=== PATIENT | male | born 1950 | race African-American/Black ===

== ENCOUNTER 2020-11-14 21:28 | Inpatient (IN) | payer MEDICARE, OTHER ==
[~2020-11-14] VITALS: Ht 175.3 cm; Wt 69.4 kg
[2020-11-14] MEDS ORDERED: ONDANSETRON HCL 4MG/2ML INJ IV NR (23:08)
[2020-11-14] MEDS ORDERED: SODIUM CHLORIDE 0.9% 1,000 ML IV NR (23:15)
[2020-11-14 23:41] LABS: CHLORIDE 106 mEq/L (98-107)
[2020-11-14] MEDS: MORPHINE SULFATE 4 MG/ML CPJ (NOT FOR IM USE) IV NR (23:56)
[2020-11-15] MEDS: MORPHINE SULFATE 4 MG/ML CPJ (NOT FOR IM USE) IV NR (00:42)
[2020-11-15 00:52] LABS: HEMATOCRIT. 45.4 % (42.0-52.0); MEAN CORPUSCULAR HEMOGLOBIN 29.7 pg (28.0-32.0); MEAN CORPUSCULAR VOLUME 89.7 fL (80.0-94.0); MEAN PLATELET VOLUME 7.5 fl (7.4-10.4); PLATELET 319 x1000/uL (130-400); RED BLOOD CELL COUNT 5.06 mill/uL (4.7-6.1); RED CELL DISTRIBUTION WIDTH 13.1 % (11.6-14.6)
[2020-11-15 01:43] LABS: PLATELET ESTIMATE NORMAL
[2020-11-15] MEDS ORDERED: CLON1TAB12 PO (06:02)
[2020-11-15] MEDS ORDERED: HYDR-4009 PO (06:02)
[2020-11-15] MEDS ORDERED: GABA-532 PO (06:02)
[2020-11-15 06:33] VITALS: BP 111/65
[2020-11-15 06:34] VITALS: BP 111/65
[2020-11-15 08:01] VITALS: BP 121/74
[2020-11-15] MEDS ORDERED: CLONIDINE 0.1MG TABLET PO PRN (08:30)
[2020-11-15] MEDS ORDERED: ACETAMINOPHEN 325MG TABLET PO PRN (08:30)
[2020-11-15] MEDS ORDERED: IPRATROPIUM/ALBUTEROL 0.5-3(2.5)MG/3ML NEB HHN PRN (08:30)
[2020-11-15] MEDS ORDERED: ONDANSETRON HCL 4MG/2ML INJ IV PRN (08:30)
[2020-11-15] MEDS ORDERED: DIPHENHYDRAMINE 50MG/ML VIAL IV PRN (08:30)
[2020-11-15] MEDS: MORPHINE SULFATE 2 MG/ML CPJ (NOT FOR IM USE) IV PRN ×4 (09:43→23:25)
[2020-11-15] MEDS: PIPERACILLIN/TAZOBACTAM 3.375 G in DEXTROSE 5% WATER 50 ML IV SCH ×2 (11:39→18:03)
[2020-11-15 12:13] VITALS: BP 116/72
[2020-11-15 15:43] VITALS: BP 120/65
[2020-11-15] MEDS ORDERED: CLONAZEPAM 0.5MG TABLET PO SCH (17:00)
[2020-11-15] MEDS: GABAPENTIN 300MG CAPSULE PO SCH (17:13)
[2020-11-15 20:00] VITALS: BP 122/73
[2020-11-15] MEDS: DEXAMETHASONE 4MG/ML 1ML VIAL IV SCH (23:25)
[2020-11-16] VITALS (42 sets, daily range): BP systolic 91–161; BP diastolic 43–102
[2020-11-16] MEDS: PIPERACILLIN/TAZOBACTAM 3.375 G in DEXTROSE 5% WATER 50 ML IV SCH ×2 (01:30→13:10)
[2020-11-16] MEDS: DEXAMETHASONE 4MG/ML 1ML VIAL IV SCH ×4 (06:23→23:32)
[2020-11-16] MEDS ORDERED: THROMBIN (BOVINE) 5000 UNITS/VIAL TOP ONE ×2 (07:15→07:16)
[2020-11-16] MEDS ORDERED: GENTAMICIN SULF 40MG/ML 2ML VIAL ONE (07:15)
[2020-11-16 07:42] LABS: CHLORIDE 105 mEq/L (98-107); HEMATOCRIT. 41.5 % (42.0-52.0); HEMOGLOBIN. 14.2 g/dL (14.0-18.0); MEAN CORPUSCULAR HEMOGLOBIN 30.4 pg (28.0-32.0); MEAN PLATELET VOLUME 7.4 fl (7.4-10.4); PLATELET 346 x1000/uL (130-400); RED BLOOD CELL COUNT 4.66 mill/uL (4.7-6.1); RED CELL DISTRIBUTION WIDTH 13.1 % (11.6-14.6)
[2020-11-16 07:51] LABS: LDL CHOLESTEROL 61 mg/dL (5-100)
[2020-11-16 07:53] LABS: HDL CHOLESTEROL 48 mg/dL (40-59)
[2020-11-16] MEDS: GABAPENTIN 300MG CAPSULE PO SCH ×3 (09:00→17:51)
[2020-11-16] MEDS: CLONAZEPAM 1MG TABLET PO SCH ×3 (09:00→17:51)
[2020-11-16 09:25] LABS: PLATELET ESTIMATE NORMAL
[2020-11-16] MEDS ORDERED: FENTANYL CITRATE/PF 50MCG/ML 2ML VIAL ONE ×2 (09:56→10:29)
[2020-11-16] MEDS ORDERED: ROCURONIUM BROMIDE 10MG/ML VIAL 5ML IV ONE (09:57)
[2020-11-16] MEDS ORDERED: PHENYLEPHRINE HCL 10 MG/ML 1ML (IV VIAL) IV ONE (09:57)
[2020-11-16] MEDS ORDERED: GLYCOPYRROLATE 0.2 MG/ML 2ML VIAL ONE (09:57)
[2020-11-16] MEDS ORDERED: MIDAZOLAM HCL 2 MG/2 ML VIAL ONE (09:57)
[2020-11-16] MEDS ORDERED: NEOSTIGMINE METHYLSULFATE 1MG/ML 10 ML VIAL ONE (09:57)
[2020-11-16] MEDS ORDERED: SODIUM CHLORIDE 0.9% 10ML VIAL ONE (09:57)
[2020-11-16] MEDS ORDERED: ONDANSETRON HCL 4MG/2ML INJ ONE (09:57)
[2020-11-16] MEDS ORDERED: PROPOFOL 200MG/20ML VIAL IV ONE (09:57)
[2020-11-16] MEDS ORDERED: METOCLOPRAMIDE HCL 10MG/2ML VIAL ONE (09:57)
[2020-11-16] MEDS ORDERED: CEFAZOLIN SODIUM 1000MG/VIAL ONE (09:57)
[2020-11-16] MEDS ORDERED: SUCCINYLCHOLINE CHLORIDE 200MG/10ML IV ONE (10:04)
[2020-11-16] MEDS ORDERED: LABETALOL HCL 5MG/ML VIAL 20ML IV ONE (11:44)
[2020-11-16] MEDS ORDERED: NICARDIPINE 100 MG in SODIUM CHLORIDE 0.9% 60 ML IV PRN (12:00)
[2020-11-16] MEDS: MORPHINE SULFATE 4 MG/ML CPJ (NOT FOR IM USE) IV PRN (12:12)
[2020-11-16] MEDS: DEXT 5%/LACTATED RINGERS 1,000 ML IV SCH ×2 (12:26→23:32)
[2020-11-16] MEDS ORDERED: DIPHENHYDRAMINE INJ IV PRN (12:30)
[2020-11-16] MEDS ORDERED: ONDANSETRON INJ IV PRN (12:30)
[2020-11-16] MEDS ORDERED: NALOXONE INJ IV PRN (12:30)
[2020-11-16] MEDS: HYDROMORPHONE PCA 10MG/50ML IV PRN (12:56)
[2020-11-16] MEDS ORDERED: MORPHINE SULFATE 4 MG/ML CPJ (NOT FOR IM USE) IV SCH (13:45)
[2020-11-16] MEDS ORDERED: CEFAZOLIN SODIUM 1000MG/VIAL IV SCH (14:00)
[2020-11-16] MEDS: PIPERACILLIN/TAZOBACTAM 3.375G in DEXT 5% WATER 50ML IV SCH ×2 (17:50→23:32)
[2020-11-16] MEDS: CEFAZOLIN 1000MG PREMIX 50 ML IV SCH (17:51)
[2020-11-17] VITALS (57 sets, daily range): BP systolic 93–177; BP diastolic 51–85
[2020-11-17] MEDS: CEFAZOLIN 1000MG PREMIX 50 ML IV SCH ×3 (01:02→17:58)
[2020-11-17] MEDS: DEXAMETHASONE 4MG/ML 1ML VIAL IV SCH ×4 (05:49→23:23)
[2020-11-17] MEDS: PIPERACILLIN/TAZOBACTAM 3.375G in DEXT 5% WATER 50ML IV SCH ×4 (05:49→23:23)
[2020-11-17] MEDS: DEXT 5%/LACTATED RINGERS 1,000 ML IV SCH (07:22)
[2020-11-17] MEDS: CLONAZEPAM 1MG TABLET PO SCH ×3 (08:03→18:20)
[2020-11-17] MEDS: GABAPENTIN 300MG CAPSULE PO SCH ×3 (08:03→18:21)
[2020-11-17 10:03] LABS: HEMATOCRIT. 38.5 % (42.0-52.0); HEMOGLOBIN. 13.1 g/dL (14.0-18.0); MEAN CORPUSCULAR HEMOGLOBIN 30.3 pg (28.0-32.0); MEAN CORPUSCULAR VOLUME 89.2 fL (80.0-94.0); MEAN PLATELET VOLUME 7.4 fl (7.4-10.4); PLATELET 366 x1000/uL (130-400); RED BLOOD CELL COUNT 4.32 mill/uL (4.7-6.1); RED CELL DISTRIBUTION WIDTH 12.9 % (11.6-14.6)
[2020-11-17 10:05] LABS: CHLORIDE 108 mEq/L (98-107)
[2020-11-17 11:03] LABS: PLATELET ESTIMATE NORMAL
[2020-11-18] VITALS (60 sets, daily range): BP systolic 94–186; BP diastolic 31–140
[2020-11-18] MEDS: CEFAZOLIN 1000MG PREMIX 50 ML IV SCH ×3 (01:02→17:07)
[2020-11-18] MEDS: HYDROMORPHONE PCA 10MG/50ML IV PRN (04:25)
[2020-11-18] MEDS: PIPERACILLIN/TAZOBACTAM 3.375G in DEXT 5% WATER 50ML IV SCH ×3 (05:32→17:48)
[2020-11-18] MEDS: DEXAMETHASONE 4MG/ML 1ML VIAL IV SCH ×3 (05:32→17:07)
[2020-11-18] MEDS: CLONAZEPAM 1MG TABLET PO SCH ×3 (08:04→17:07)
[2020-11-18] MEDS: GABAPENTIN 300MG CAPSULE PO SCH ×3 (08:04→17:07)
[2020-11-18] MEDS ORDERED: VANCOMYCIN 1250MG in DEXTROSE 5% WATER 250ML IV NR (22:00)
[2020-11-18] MEDS: CEFTRIAXONE 2 G in DEXTROSE 5% WATER 50 ML IV SCH (22:01)
[2020-11-19] VITALS (74 sets, daily range): BP systolic 102–160; BP diastolic 36–108
[2020-11-19] MEDS: DEXAMETHASONE 4MG/ML 1ML VIAL IV SCH ×3 (00:25→12:15)
[2020-11-19 05:46] LABS: CHLORIDE 105 mEq/L (98-107)
[2020-11-19 05:55] LABS: HEMATOCRIT. 40.4 % (42.0-52.0); HEMOGLOBIN. 13.2 g/dL (14.0-18.0); MEAN CORPUSCULAR HEMOGLOBIN 29.2 pg (28.0-32.0); MEAN CORPUSCULAR VOLUME 89.3 fL (80.0-94.0); MEAN PLATELET VOLUME 8.1 fl (7.4-10.4); PLATELET 401 x1000/uL (130-400); RED BLOOD CELL COUNT 4.52 mill/uL (4.7-6.1); RED CELL DISTRIBUTION WIDTH 13.1 % (11.6-14.6)
[2020-11-19] MEDS: CLONAZEPAM 1MG TABLET PO SCH ×3 (08:06→17:40)
[2020-11-19] MEDS: VANCOMYCIN 1 G PREMIX 200 ML IV SCH ×2 (08:06→20:44)
[2020-11-19] MEDS: GABAPENTIN 300MG CAPSULE PO SCH ×3 (08:06→17:40)
[2020-11-19 13:19] LABS: PLATELET ESTIMATE NORMAL
[2020-11-19] MEDS ORDERED: HALOPERIDOL LACTATE 5MG/ML VIAL IM PRN (20:30)
[2020-11-19] MEDS: HYDROCODONE/ACETAMINOPHEN 5/325MG TABLET PO PRN (20:58)
[2020-11-19] MEDS: CEFTRIAXONE 2 G in DEXTROSE 5% WATER 50 ML IV SCH (21:00)
[2020-11-20 04:00] VITALS: BP 146/88
[2020-11-20] MEDS: MORPHINE SULFATE 4 MG/ML CPJ (NOT FOR IM USE) IV PRN (05:55)
[2020-11-20 06:13] LABS: CHLORIDE 107 mEq/L (98-107)
[2020-11-20 06:18] LABS: HEMATOCRIT. 42.7 % (42.0-52.0); HEMOGLOBIN. 14.3 g/dL (14.0-18.0); MEAN CORPUSCULAR HEMOGLOBIN 30.3 pg (28.0-32.0); MEAN CORPUSCULAR VOLUME 90.6 fL (80.0-94.0); MEAN PLATELET VOLUME 7.4 fl (7.4-10.4); PLATELET 396 x1000/uL (130-400); RED BLOOD CELL COUNT 4.71 mill/uL (4.7-6.1); RED CELL DISTRIBUTION WIDTH 12.9 % (11.6-14.6)
[2020-11-20 08:00] VITALS: BP 123/76
[2020-11-20] MEDS: GABAPENTIN 300MG CAPSULE PO SCH ×3 (09:23→17:00)
[2020-11-20] MEDS: CLONAZEPAM 1MG TABLET PO SCH ×3 (09:23→17:00)
[2020-11-20] MEDS: VANCOMYCIN 1 G PREMIX 200 ML IV SCH (09:24)
[2020-11-20] MEDS: HYDROCODONE/ACETAMINOPHEN 5/325MG TABLET PO PRN (10:33)
[2020-11-20 12:00] VITALS: BP 143/90
[2020-11-20 19:07] LABS: PLATELET ESTIMATE NORMAL
== END 2020-11-20 18:43 | disposition left against medical advice (07) | DRG 912 ==
LOC: ER 21:28 → 6WST 11-15 01:14 → ENRESERV 11-15 03:33 → MICUNO 11-16 10:58 → 6EST 11-19 23:41
PROVIDERS: ADMIT Internal Medicine; ATTEND Internal Medicine
PROC: 0RG20J1 Fusion of 2 or more Cervical Vertebral Joints with Synthetic Substitute, Posterior Approach, Posterior Column, Open Approach (ICD-10-PCS; principal; 2020-11-16)
PROC: 00NW0ZZ Release Cervical Spinal Cord, Open Approach (ICD-10-PCS; 2020-11-16)
PROC: 4A11X4G Monitoring of Peripheral Nervous Electrical Activity, Intraoperative, External Approach (ICD-10-PCS; 2020-11-16)
PROC: 009U3ZZ Drainage of Spinal Canal, Percutaneous Approach (ICD-10-PCS; 2020-11-16)
DX: S14.103A Unspecified injury at C3 level of cervical spinal cord, initial encounter (principal); S06.4X0A Epidural hemorrhage without loss of consciousness, initial encounter; G82.50 Quadriplegia, unspecified; G93.41 Metabolic encephalopathy; G95.19 Other vascular myelopathies; R13.10 Dysphagia, unspecified; M48.02 Spinal stenosis, cervical region; R47.01 Aphasia; G95.20 Unspecified cord compression; G40.909 Epilepsy, unspecified, not intractable, without status epilepticus; E78.5 Hyperlipidemia, unspecified; M19.90 Unspecified osteoarthritis, unspecified site; R74.01 Elevation of levels of liver transaminase levels; R47.1 Dysarthria and anarthria; D64.9 Anemia, unspecified; D72.829 Elevated white blood cell count, unspecified; Z20.822 Contact with and (suspected) exposure to COVID-19; R73.9 Hyperglycemia, unspecified; Y65.8 Other specified misadventures during surgical and medical care; M47.812 Spondylosis without myelopathy or radiculopathy, cervical region; X58.XXXA Exposure to other specified factors, initial encounter; V89.2XXA Person injured in unspecified motor-vehicle accident, traffic, initial encounter; Y92.410 Unspecified street and highway as the place of occurrence of the external cause; Z88.8 Allergy status to other drugs, medicaments and biological substances; Z79.899 Other long term (current) drug therapy; Y92.89 Other specified places as the place of occurrence of the external cause; Y93.89 Activity, other specified; Y99.8 Other external cause status; Z79.2 Long term (current) use of antibiotics; R53.81 Other malaise; R26.9 Unspecified abnormalities of gait and mobility
CPT/HCPCS: 36415; 72040; 72141; 76000; 80048; 80053; 80061; 80202; 83605; 84145; 84443; 85025; 85651; 86140; 86850; 86900; 87070; 87075; 87426; 88300; 88307; 92523; 92610; 93005; 93970; 95863; 95925; 95926; 95928; 95929; 97116; 97163; 97166; 99285; C1713; J0330; J0690; J0696; J1100; J1170; J1200; J1580; J1630; J2250; J2270; J2370; J2405; J2543; J2704; J2710; J2765; J3010; J3370; J3490; J7060; J7121; C1762

== ENCOUNTER 2023-07-03 21:30 | Emergency (ER) | payer MEDICARE, OTHER ==
[~2023-07-03] VITALS: Ht 175.3 cm; Wt 73.5 kg
[~2023-07-03 21:30] MED LIST: CLON1TAB12 PO; GABA-532 PO; HYDR-4009 PO
[2023-07-03 21:42] VITALS: O2SAT 95
[2023-07-03] MEDS ORDERED: ALBUTEROL (0.083%) 2.5MG/3ML NEB HHN STA (22:43)
[2023-07-03] MEDS ORDERED: IPRATROPIUM BROMIDE (0.02%) 0.5MG/2.5ML NEB HHN STA (22:43)
[2023-07-03 22:48] LABS: BASOPHILS % 0.7 % (0.0-2.0); EOSINOPHILS % 1.6 % (0.0-5.0); HEMATOCRIT. 48.9 % (42.0-52.0); HEMOGLOBIN. 16.4 g/dL (14.0-18.0); LYMPHOCYTES % 11.2 % (20.0-50.0); MEAN CORPUSCULAR HEMOGLOBIN 30.3 pg (28.0-32.0); MEAN CORPUSCULAR HGB CONC 33.5 g/dL (31.0-37.0); MEAN CORPUSCULAR VOLUME 90.4 fL (80.0-94.0); MEAN PLATELET VOLUME 7.8 fl (7.4-10.4); MONOCYTES % 8.1 % (2.0-8.0); NEUTROPHILS % 78.4 % (40.0-76.0); PLATELET 346 x1000/uL (130-400); RED BLOOD CELL COUNT 5.41 mill/uL (4.7-6.1); RED CELL DISTRIBUTION WIDTH 13.6 % (11.6-14.6); WHITE BLOOD COUNT 13.1 x1000/uL (4.5-11.0)
[2023-07-03 23:05] LABS: ALANINE AMINOTRANSFERASE 25 IU/L (10-49); ASPARTATE AMINOTRANSFERASE 35 IU/L (<34); BILIRUBIN TOTAL 0.7 mg/dL (0.1-1.0); CARBON DIOXIDE 26 mEq/L (21-32); CHLORIDE 105 mEq/L (98-107); GLUCOSE 98 mg/dL (70-105); POTASSIUM 5.9 mEq/L (3.5-5.1); PROTEIN TOTAL 7.1 g/dL (6.0-8.3); SODIUM 136 mEq/L (136-145); TROPONIN I HIGH SENSITIVITY 5 ng/L (3.0-53); UREA NITROGEN BLOOD 12 mg/dL (9-23)
[2023-07-03] MEDS: GUAIFENESIN 600MG ER TABLET PO ONE (23:41)
[2023-07-03] MEDS: ACETAMINOPHEN 325MG TABLET PO STA (23:41)
[2023-07-04] MEDS ORDERED: VANCOMYCIN 1G PREMIX 200 ML IV NR (00:45)
[2023-07-04] MEDS: PIPERACILLIN/TAZO 3.375G/50ML 50 ML IV NR (01:43)
[2023-07-04] MEDS: SODIUM CHLORIDE 0.9% 1,000 ML IV NR (01:44)
[2023-07-04] MEDS ORDERED: ONDANSETRON HCL 4MG/2ML INJ IV ONE (02:00)
[2023-07-04 02:35] VITALS: BP 124/77; PULSE 98; RESP 19; TEMP 98.4
== END 2023-07-04 02:40 | disposition short-term general hospital (02) ==
LOC: ER 21:30
DX: J18.9 Pneumonia, unspecified organism (principal); J90 Pleural effusion, not elsewhere classified
CPT/HCPCS: 99291; 80053; 83880; 83605; 85025; 87040; 84484; 36415; 84145; 71045; 93005; 96365; 71250; J2405; J2543; J3370

== ENCOUNTER 2023-08-16 00:04 | Emergency (ER) | payer MEDICARE, OTHER ==
[~2023-08-16] VITALS: Ht 175.3 cm; Wt 73.0 kg
[2023-08-16 00:26] VITALS: O2SAT 98
[2023-08-16] MEDS: MORPHINE SULFATE 4 MG/ML INJ (FOR IV/IM USE) IV STA (01:05)
[2023-08-16] MEDS: ONDANSETRON HCL 4MG/2ML INJ IV STA (01:12)
[2023-08-16] MEDS: SODIUM CHLORIDE 0.9% 1,000 ML IV ONE (01:15)
[2023-08-16 01:17] LABS: BASOPHILS % 0.7 % (0.0-2.0); EOSINOPHILS % 3.2 % (0.0-5.0); HEMATOCRIT. 47.9 % (42.0-52.0); HEMOGLOBIN. 15.6 g/dL (14.0-18.0); LYMPHOCYTES % 17.5 % (20.0-50.0); MEAN CORPUSCULAR HEMOGLOBIN 29.8 pg (28.0-32.0); MEAN CORPUSCULAR HGB CONC 32.5 g/dL (31.0-37.0); MEAN CORPUSCULAR VOLUME 91.7 fL (80.0-94.0); MEAN PLATELET VOLUME 6.8 fl (7.4-10.4); MONOCYTES % 9.1 % (2.0-8.0); NEUTROPHILS % 69.5 % (40.0-76.0); PLATELET 293 x1000/uL (130-400); RED BLOOD CELL COUNT 5.23 mill/uL (4.7-6.1); RED CELL DISTRIBUTION WIDTH 14.3 % (11.6-14.6); WHITE BLOOD COUNT 9.4 x1000/uL (4.5-11.0)
[2023-08-16 01:37] LABS: ALANINE AMINOTRANSFERASE 29 IU/L (10-49); ALBUMIN 3.8 g/dL (3.2-4.8); ASPARTATE AMINOTRANSFERASE 22 IU/L (<34); BILIRUBIN TOTAL 0.7 mg/dL (0.1-1.0); CALCIUM 10.3 mg/dL (8.7-10.4); CARBON DIOXIDE 27 mEq/L (21-32); CHLORIDE 101 mEq/L (98-107); CREATININE 0.9 mg/dL (0.6-1.3); GLUCOSE 106 mg/dL (70-105); POTASSIUM 4.1 mEq/L (3.5-5.1); PROTEIN TOTAL 6.4 g/dL (6.0-8.3); SODIUM 133 mEq/L (136-145); UREA NITROGEN BLOOD 12 mg/dL (9-23)
[2023-08-16 06:15] VITALS: BP 144/90; PULSE 71; RESP 18; TEMP 98.1
== END 2023-08-16 06:59 | disposition short-term general hospital (02) ==
LOC: ER 00:04 → CANBEDREQ 09:53
DX: R11.2 Nausea with vomiting, unspecified (principal); M79.10 Myalgia, unspecified site; R06.02 Shortness of breath; Z85.9 Personal history of malignant neoplasm, unspecified
CPT/HCPCS: 99285; 96361; 96374; 71045; 96375; 80053; 83605; 83690; 85025; 36415; J2405; J2270; J7030

== ENCOUNTER 2023-08-21 06:54 | Emergency (ER) | payer MEDICARE, OTHER ==
[~2023-08-21] VITALS: Ht 175.3 cm; Wt 72.5 kg
[2023-08-21 07:11] VITALS: O2SAT 98
[2023-08-21 10:17] LABS: BASOPHILS % 0.6 % (0.0-2.0); EOSINOPHILS % 4.4 % (0.0-5.0); HEMATOCRIT. 43.7 % (42.0-52.0); HEMOGLOBIN. 14.4 g/dL (14.0-18.0); LYMPHOCYTES % 18.6 % (20.0-50.0); MEAN CORPUSCULAR HEMOGLOBIN 29.2 pg (28.0-32.0); MEAN CORPUSCULAR HGB CONC 32.9 g/dL (31.0-37.0); MEAN CORPUSCULAR VOLUME 88.9 fL (80.0-94.0); MEAN PLATELET VOLUME 7.1 fl (7.4-10.4); MONOCYTES % 9.6 % (2.0-8.0); NEUTROPHILS % 66.8 % (40.0-76.0); PLATELET 327 x1000/uL (130-400); RED BLOOD CELL COUNT 4.92 mill/uL (4.7-6.1); RED CELL DISTRIBUTION WIDTH 13.9 % (11.6-14.6); WHITE BLOOD COUNT 9.7 x1000/uL (4.5-11.0)
[2023-08-21] MEDS: SODIUM CHLORIDE 0.9% 1,000 ML IV ONE (10:25)
[2023-08-21] MEDS: MORPHINE SULFATE 4 MG/ML INJ (FOR IV/IM USE) IV STA (10:25)
[2023-08-21 10:26] LABS: ALANINE AMINOTRANSFERASE 21 IU/L (10-49); ALBUMIN 3.7 g/dL (3.2-4.8); ASPARTATE AMINOTRANSFERASE 16 IU/L (<34); BILIRUBIN TOTAL 0.5 mg/dL (0.1-1.0); CARBON DIOXIDE 25 mEq/L (21-32); CHLORIDE 101 mEq/L (98-107); CREATININE 0.9 mg/dL (0.6-1.3); GLUCOSE 107 mg/dL (70-105); POTASSIUM 4.1 mEq/L (3.5-5.1); PROTEIN TOTAL 6.3 g/dL (6.0-8.3); SODIUM 131 mEq/L (136-145); TROPONIN I HIGH SENSITIVITY 5 ng/L (3.0-53); UREA NITROGEN BLOOD 14 mg/dL (9-23)
[2023-08-21 10:42] VITALS: TEMP 97.1
[2023-08-21 10:54] LABS: INR 1.1; PROTHROMBIN TIME 12.4 sec (9.6-11.0)
[2023-08-21] MEDS: MORPHINE SULFATE 4 MG/ML INJ (FOR IV/IM USE) IV ONE (12:15)
[2023-08-21 15:38] VITALS: BP 155/80; PULSE 70; RESP 18
== END 2023-08-21 16:00 | disposition short-term general hospital (02) ==
LOC: ER 06:54 → CANBEDREQ 12:33 → ER 16:00
DX: R53.1 Weakness (principal); R51.9 Headache, unspecified; Z85.9 Personal history of malignant neoplasm, unspecified
CPT/HCPCS: 80053; 85025; 85610; 84484; 36415; 71045; 70450; 96361; 96374; 99285; J2270; J7030; Z7610 ×3

== ENCOUNTER 2023-09-19 15:40 | Inpatient (IN) | payer MEDICARE, OTHER ==
[~2023-09-19] VITALS: Ht 177.8 cm; Wt 54.9 kg
[2023-09-19] VITALS (20 sets, daily range): BP systolic 84–130; BP diastolic 58–96; PULSE 120–132; RESP 9–23; TEMP 97.2; O2SAT 99
[~2023-09-19 15:40] MED LIST changes: +KEPP500 MT; +LEVO-65 MT; +MEGE40TA5 MT
[2023-09-19] MEDS: NOREPINEPHRINE 8MG/250ML PMX 250 ML IV ONE (15:53)
[2023-09-19] MEDS ORDERED: NOREPINEPHRINE 8 MG in DEXT 5% WATER 242 ML IV PRN (16:00)
[2023-09-19] MEDS ORDERED: FENTANYL 2500MCG/250ML PMX 250 ML IV ONE (16:00)
[2023-09-19] MEDS ORDERED: CEFEPIME 2GM IN DEXT 5% 100ML IV ONE (16:45)
[2023-09-19] MEDS ORDERED: VANCOMYCIN 500MG PREMIX 100 ML IV SCH ×2 (16:45→17:30)
[2023-09-19] MEDS: FENTANYL 2500MCG/250ML PMX 250 ML IV PRN (16:59)
[2023-09-19 17:30] LABS: BG BASE EXCESS -2.1 mmol/L (-2.0-2.0); BG CARBOXYHEMOGLOBIN 0.2 % (0.5-1.5); BG FRACTION INSPIRED OXYGEN 100; BG HCO3 ACT 20.6 mmol/L (22.0-26.0); BG METHEMOGLOBIN 0.4 % (0.0-1.5); BG OXYHEMOGLOBIN 98.4 % (94.0-97.0); BG PCO2 30.6 mmHg (35.0-45.0); BG PH 7.447 (7.350-7.450); BG PO2 144.8 mmHg (75.0-100.0); BG SAMPLE SITE RIGHT RADIAL; BG TOTAL HEMOGLOBIN 16.5 g/dL (12.0-18.0); BG VENT MODE VENT - AC
[2023-09-19 17:34] LABS: HEMATOCRIT. 45.9 % (42.0-52.0); HEMOGLOBIN. 15.2 g/dL (14.0-18.0); MEAN CORPUSCULAR HEMOGLOBIN 29.3 pg (28.0-32.0); MEAN CORPUSCULAR HGB CONC 33.1 g/dL (31.0-37.0); MEAN CORPUSCULAR VOLUME 88.7 fL (80.0-94.0); MEAN PLATELET VOLUME 6.9 fl (7.4-10.4); PLATELET 287 x1000/uL (130-400); RED BLOOD CELL COUNT 5.18 mill/uL (4.7-6.1); RED CELL DISTRIBUTION WIDTH 13.8 % (11.6-14.6); WHITE BLOOD COUNT 13.8 x1000/uL (4.5-11.0)
[2023-09-19] MEDS: NOREPINEPHRINE 8MG/250ML PMX 250 ML IV PRN (17:34)
[2023-09-19] MEDS: VANCOMYCIN 1G PREMIX 200 ML IV SCH (17:34)
[2023-09-19 17:35] LABS: DIFFERENTIAL COMMENT 1
[2023-09-19 17:38] LABS: CARBON DIOXIDE 27 mEq/L (21-32); CHLORIDE 104 mEq/L (98-107); POTASSIUM 3.6 mEq/L (3.5-5.1); SODIUM 139 mEq/L (136-145)
[2023-09-19] MEDS: LACTATED RINGERS 1,000 ML IV SCH (17:38)
[2023-09-19 17:39] LABS: CALCIUM 11.2 mg/dL (8.7-10.4)
[2023-09-19 17:43] LABS: CREATININE 1.1 mg/dL (0.6-1.3)
[2023-09-19 17:44] LABS: GLUCOSE 112 mg/dL (70-105); UREA NITROGEN BLOOD 16 mg/dL (9-23)
[2023-09-19 17:45] LABS: LACTIC ACID 2.6 mmol/L (0.4-2.0)
[2023-09-19 17:46] LABS: ALANINE AMINOTRANSFERASE 22 IU/L (10-49); ALBUMIN 2.8 g/dL (3.2-4.8); ASPARTATE AMINOTRANSFERASE 13 IU/L (<34); BILIRUBIN TOTAL 0.9 mg/dL (0.1-1.0)
[2023-09-19] MEDS: CEFEPIME 2GM/100ML 100 ML IV SCH (18:00)
[2023-09-19 18:10] LABS: PROTEIN TOTAL 4.9 g/dL (6.0-8.3)
[2023-09-19 18:11] LABS: TROPONIN I HIGH SENSITIVITY 82 ng/L (3.0-53)
[2023-09-19] MEDS ORDERED: PROPOFOL 10MG/ML 100ML 100 ML IV PRN (21:30)
[2023-09-19 22:13] LABS: TROPONIN I HIGH SENSITIVITY 257 ng/L (3.0-53)
[2023-09-19 22:22] LABS: PLATELET ESTIMATE NORMAL
[2023-09-19] MEDS ORDERED: IOHEXOL-350 100 ML BOTTLE ONE (22:25)
[2023-09-19] MEDS ORDERED: MAGNESIUM/ALUMINUM HYDROXIDE/SIMETHICONE 30ML UDC PO PRN (23:00)
[2023-09-19] MEDS ORDERED: ONDANSETRON HCL 4MG/2ML INJ IV PRN (23:00)
[2023-09-19] MEDS ORDERED: ACETAMINOPHEN 325MG TABLET PO PRN (23:00)
[2023-09-19] MEDS: DEXT 5%/0.45% NACL 1000ML 1,000 ML IV SCH (23:56)
[2023-09-20] VITALS (108 sets, daily range): BP systolic 32–193; BP diastolic 23–134; PULSE 66–164; RESP 0–81; TEMP 95.1–98
[2023-09-20 01:16] LABS: PHOSPHORUS 1.3 mg/dL (2.5-4.9)
[2023-09-20] MEDS ORDERED: DEXTROSE 50% WATER 50ML SYRINGE IV PRN (01:30)
[2023-09-20 02:44] LABS: CLARITY URINE CLEAR (CLEAR); COLOR URINE YELLOW (YELLOW); GLUCOSE URINE NEGATIVE (NEGATIVE); KETONES URINE NEGATIVE (NEGATIVE); LEUKOCYTE ESTERASE URINE NEGATIVE (NEGATIVE); NITRITE URINE NEGATIVE (NEGATIVE); OCCULT BLOOD URINE NEGATIVE (NEGATIVE); PROTEIN URINE NEGATIVE (NEGATIVE); SPECIFIC GRAVITY URINE 1.064 (1.005-1.030)
[2023-09-20] MEDS: POTASSIUM PHOSPHATE 30 MMOL in SODIUM CHLORIDE 0.9% 490 ML IV NR (03:06)
[2023-09-20] MEDS: VANCOMYCIN 750MG/150ML IV SCH (05:17)
[2023-09-20] MEDS: METHYLPREDNISOLONE SOD SUCC 40MG/ML (ACT-O-VIAL) IV SCH (05:17)
[2023-09-20] MEDS: CEFEPIME 2GM/50ML DUPLEX 50 ML IV SCH (05:18)
[2023-09-20 05:43] LABS: BASOPHILS % 0.6 % (0.0-2.0); EOSINOPHILS % 2.6 % (0.0-5.0); HEMATOCRIT. 41.5 % (42.0-52.0); HEMOGLOBIN. 13.7 g/dL (14.0-18.0); LYMPHOCYTES % 9.9 % (20.0-50.0); MEAN CORPUSCULAR HEMOGLOBIN 29.1 pg (28.0-32.0); MEAN CORPUSCULAR VOLUME 88.1 fL (80.0-94.0); MEAN PLATELET VOLUME 7.4 fl (7.4-10.4); MONOCYTES % 8.4 % (2.0-8.0); NEUTROPHILS % 78.5 % (40.0-76.0); PLATELET 279 x1000/uL (130-400); RED BLOOD CELL COUNT 4.71 mill/uL (4.7-6.1); RED CELL DISTRIBUTION WIDTH 13.8 % (11.6-14.6); WHITE BLOOD COUNT 17.6 x1000/uL (4.5-11.0)
[2023-09-20 05:52] LABS: CALCIUM 11.8 mg/dL (8.7-10.4); CARBON DIOXIDE 27 mEq/L (21-32); CHLORIDE 112 mEq/L (98-107); POTASSIUM 3.6 mEq/L (3.5-5.1); SODIUM 145 mEq/L (136-145)
[2023-09-20 05:57] LABS: GLUCOSE 135 mg/dL (70-105)
[2023-09-20 05:58] LABS: AMMONIA 19 uMol/L (<32); LDL CHOLESTEROL 53 mg/dL (5-100); TRIGLYCERIDE 119 mg/dL (0-150); UREA NITROGEN BLOOD 15 mg/dL (9-23)
[2023-09-20 05:59] LABS: CHOLESTEROL 113 mg/dL (<200); HDL CHOLESTEROL 36 mg/dL (>55)
[2023-09-20 06:00] LABS: PHOSPHORUS 2.1 mg/dL (2.5-4.9)
[2023-09-20] MEDS ORDERED: IPRATROPIUM/ALBUTEROL 0.5-3(2.5)MG/3ML NEB HHN SCH (06:00)
[2023-09-20] MEDS ORDERED: AMIODARONE HCL 150 MG in DEXT 5% WATER 100 ML IV ONE (06:00)
[2023-09-20 06:01] LABS: T4 FREE 0.95 ng/dL (0.89-1.76); THYROID STIMULATING HORMONE 2.21 uIU/mL (0.55-4.78)
[2023-09-20 06:11] LABS: PROTHROMBIN TIME 11.3 sec (9.6-11.0)
[2023-09-20 06:12] LABS: CREATINE KINASE MB FRACTION 1.9 ng/mL (0.5-3.6)
[2023-09-20] MEDS ORDERED: PHENYLEPHRINE 50 MG in DEXT 5% WATER 245 ML IV PRN (06:30)
[2023-09-20] MEDS: AMIODARONE HCL 900 MG in DEXT 5% WATER 500 ML IV SCH (06:32)
[2023-09-20] MEDS: AMIODARONE 150MG/100ML 100 ML IV NR (06:33)
[2023-09-20] MEDS: EPINEPHRINE 10 MG in SODIUM CHLORIDE 0.9% 240 ML IV PRN (06:33)
[2023-09-20] MEDS ORDERED: POTASSIUM PHOSPHATE 30 MMOL in SODIUM CHLORIDE 0.9% 490 ML IV ONE (07:00)
[2023-09-20] MEDS: BLOOD SUGAR DIAGNOSTIC STRIP TEST SCH (07:50)
[2023-09-20] MEDS: PHENYLEPHRINE 50MG/250ML PMX 250 ML IV PRN ×2 (08:30)
[2023-09-20 08:50] LABS: CHLORIDE 111 mEq/L (98-107); POTASSIUM 3.6 mEq/L (3.5-5.1); SODIUM 147 mEq/L (136-145)
[2023-09-20 08:51] LABS: CARBON DIOXIDE 24 mEq/L (21-32)
[2023-09-20 08:55] LABS: HEMATOCRIT 49.3 % (42.0-52.0); HEMOGLOBIN 15.9 g/dL (14.0-18.0)
[2023-09-20 08:56] LABS: CREATININE 1.3 mg/dL (0.6-1.3); GLUCOSE 218 mg/dL (70-105); UREA NITROGEN BLOOD 17 mg/dL (9-23)
[2023-09-20 08:58] LABS: PHOSPHORUS 3.7 mg/dL (2.5-4.9)
[2023-09-20 09:04] LABS: CALCIUM 13.3 mg/dL (8.7-10.4)
[2023-09-20 09:21] LABS: BG BASE EXCESS 1.1 mmol/L (-2.0-2.0); BG CARBOXYHEMOGLOBIN 0.2 % (0.5-1.5); BG DEOXYHEMOGLOBIN 0.4 % (0.0-5.0); BG FRACTION INSPIRED OXYGEN 100; BG HCO3 ACT 23.9 mmol/L (22.0-26.0); BG METHEMOGLOBIN 0.4 % (0.0-1.5); BG OXYGEN SATURATION 99.6 % (92.0-98.5); BG PCO2 33.2 mmHg (35.0-45.0); BG PH 7.476 (7.350-7.450); BG PO2 316.6 mmHg (75.0-100.0); BG SAMPLE SITE RIGHT RADIAL; BG TOTAL HEMOGLOBIN 15.4 g/dL (12.0-18.0); BG VENT MODE VENT - AC
[2023-09-20] MEDS: LEVETIRACETAM 500MG PREMIX 100 ML IV SCH (09:25)
[2023-09-20] MEDS: INSULIN LISPRO 100 UNITS/ML SUBCUT SCH (09:25)
[2023-09-20] MEDS: PANTOPRAZOLE SODIUM 40 MG/VIAL IV SCH (09:26)
[2023-09-20] MEDS: ENOXAPARIN 40MG/0.4ML SYR SUBCUT SCH (09:26)
[2023-09-20] MEDS: VASOPRESSIN 20 UNIT in SODIUM CHLORIDE 0.9% 99 ML IV PRN (11:26)
[2023-09-20 16:20] LABS: CREATINE KINASE MB FRACTION 19.2 ng/mL (0.5-3.6)
[2023-09-20] MEDS: CEFEPIME IV SCH (17:20)
[2023-09-20] MEDS ORDERED: CEFEPIME 2GM/50ML DUPLEX 50 ML IV SCH (18:00)
[2023-09-20] MEDS: PHENYLEPHRINE 100 MG in DEXT 5% WATER 240 ML IV PRN (20:04)
[2023-09-20] MEDS: IPRATROPIUM BROMIDE (0.02%) 0.5MG/2.5ML NEB HHN SCH (20:36)
[2023-09-20] MEDS: ACETYLCYSTEINE 200MG/ML 20% VIAL 4ML INH SCH (21:17)
[2023-09-21] VITALS (99 sets, daily range): BP systolic 57–149; BP diastolic 43–108; PULSE 75–112; RESP 0–25; TEMP 94.9–97.8
[2023-09-21] MEDS: BLOOD SUGAR DIAGNOSTIC STRIP TEST SCH (00:26)
[2023-09-21] MEDS: INSULIN LISPRO 100 UNITS/ML SUBCUT SCH ×2 (00:42→06:11)
[2023-09-21 03:29] LABS: HEMOGLOBIN. 14.2 g/dL (14.0-18.0); MEAN CORPUSCULAR HEMOGLOBIN 28.2 pg (28.0-32.0); MEAN CORPUSCULAR HGB CONC 32.3 g/dL (31.0-37.0); MEAN CORPUSCULAR VOLUME 87.6 fL (80.0-94.0); MEAN PLATELET VOLUME 7.5 fl (7.4-10.4); PLATELET 185 x1000/uL (130-400); RED BLOOD CELL COUNT 5.03 mill/uL (4.7-6.1); RED CELL DISTRIBUTION WIDTH 14.2 % (11.6-14.6); WHITE BLOOD COUNT 21.2 x1000/uL (4.5-11.0)
[2023-09-21 03:30] LABS: DIFFERENTIAL COMMENT 1
[2023-09-21 03:42] LABS: CHLORIDE 111 mEq/L (98-107); POTASSIUM 3.3 mEq/L (3.5-5.1); SODIUM 143 mEq/L (136-145)
[2023-09-21 03:43] LABS: CARBON DIOXIDE 24 mEq/L (21-32)
[2023-09-21 03:44] LABS: CALCIUM 11.7 mg/dL (8.7-10.4)
[2023-09-21 03:48] LABS: CREATININE 1.3 mg/dL (0.6-1.3); GLUCOSE 227 mg/dL (70-105); UREA NITROGEN BLOOD 20 mg/dL (9-23)
[2023-09-21 08:10] LABS: BG BASE EXCESS -4.7 mmol/L (-2.0-2.0); BG CARBOXYHEMOGLOBIN 0.3 % (0.5-1.5); BG DEOXYHEMOGLOBIN 1.5 % (0.0-5.0); BG FRACTION INSPIRED OXYGEN 50; BG HCO3 ACT 21.7 mmol/L (22.0-26.0); BG METHEMOGLOBIN 0.1 % (0.0-1.5); BG OXYGEN SATURATION 98.5 % (92.0-98.5); BG OXYHEMOGLOBIN 98.1 % (94.0-97.0); BG PH 7.302 (7.350-7.450); BG PO2 141.8 mmHg (75.0-100.0); BG SAMPLE SITE RIGHT RADIAL; BG TOTAL HEMOGLOBIN 14.8 g/dL (12.0-18.0); BG VENT MODE VENT - AC
[2023-09-21] MEDS: KCL 20MEQ/100ML PREMIX 100 ML IV NR (08:56)
[2023-09-21 15:43] LABS: PLATELET ESTIMATE NORMAL
[2023-09-22] VITALS (51 sets, daily range): BP systolic 44–123; BP diastolic 24–95; PULSE 0–87; RESP 0–25; TEMP 97.8–98
[2023-09-22] MEDS: IPRATROPIUM/ALBUTEROL 0.5-3(2.5)MG/3ML NEB NEB SCH (00:23)
[2023-09-22 05:18] LABS: HEMATOCRIT. 41.6 % (42.0-52.0); HEMOGLOBIN. 13.6 g/dL (14.0-18.0); MEAN CORPUSCULAR HEMOGLOBIN 29.5 pg (28.0-32.0); MEAN CORPUSCULAR HGB CONC 32.7 g/dL (31.0-37.0); MEAN CORPUSCULAR VOLUME 90.2 fL (80.0-94.0); MEAN PLATELET VOLUME 8.3 fl (7.4-10.4); PLATELET 186 x1000/uL (130-400); RED BLOOD CELL COUNT 4.61 mill/uL (4.7-6.1); RED CELL DISTRIBUTION WIDTH 14.3 % (11.6-14.6); WHITE BLOOD COUNT 22.3 x1000/uL (4.5-11.0)
[2023-09-22 05:20] LABS: POTASSIUM 4.6 mEq/L (3.5-5.1)
[2023-09-22 05:26] LABS: CREATININE 1.5 mg/dL (0.6-1.3)
[2023-09-22 05:37] LABS: DIFFERENTIAL COMMENT 1
[2023-09-22] MEDS: VANCOMYCIN 1GM/200ML PMX (BAXTER) IV SCH (07:03)
[2023-09-22] MEDS: LEVETIRACETAM 500MG PREMIX 100 ML IV SCH (08:55)
[2023-09-22] MEDS ORDERED: MORPHINE SULFATE 250 MG in DEXT 5% WATER 225 ML IV PRN (10:45)
[2023-09-22] MEDS ORDERED: MORPHINE SULFATE 2 MG/ML CPJ (NOT FOR IM USE) IV NR (10:45)
[2023-09-22 16:21] LABS: PLATELET ESTIMATE NORMAL
== END 2023-09-22 11:25 | DRG 720 ==
LOC: ER 15:40 → EDBEDREQ 18:04 → CVICU 20:46
PROVIDERS: ADMIT Internal Medicine; ATTEND Internal Medicine
PROC: 5A12012 Performance of Cardiac Output, Single, Manual (ICD-10-PCS; 2023-09-20)
PROC: 5A1945Z Respiratory Ventilation, 24-96 Consecutive Hours (ICD-10-PCS; principal; 2023-09-21)
PROC: 0BH18EZ Insertion of Endotracheal Airway into Trachea, Via Natural or Artificial Opening Endoscopic (ICD-10-PCS; 2023-09-21)
PROC: 4A00X4Z Measurement of Central Nervous Electrical Activity, External Approach (ICD-10-PCS; 2023-09-21)
DX: A41.9 Sepsis, unspecified organism (principal); J96.01 Acute respiratory failure with hypoxia; I46.9 Cardiac arrest, cause unspecified; R65.21 Severe sepsis with septic shock; G92.8 Other toxic encephalopathy; J18.9 Pneumonia, unspecified organism; E44.0 Moderate protein-calorie malnutrition; I24.89 Other forms of acute ischemic heart disease; J90 Pleural effusion, not elsewhere classified; Z66 Do not resuscitate; M47.812 Spondylosis without myelopathy or radiculopathy, cervical region; G40.909 Epilepsy, unspecified, not intractable, without status epilepticus; E83.52 Hypercalcemia; C34.90 Malignant neoplasm of unspecified part of unspecified bronchus or lung; Z86.73 Personal history of transient ischemic attack (TIA), and cerebral infarction without residual deficits; Z79.899 Other long term (current) drug therapy; Z85.118 Personal history of other malignant neoplasm of bronchus and lung; Z68.1 Body mass index [BMI] 19.9 or less, adult
CPT/HCPCS: 31500; 36415; 36600; 70496; 70498; 71045; 71275; 76604; 80048; 80053; 80061; 80202; 81003; 82140; 82375; 82542; 82550; 82553; 82805; 82962; 83036; 83605; 83735; 83880; 84100; 84145; 84439; 84443; 84484; 85014; 85018; 85025; 85379; 87070; 93005; 93306; 93970; 94002; 94003; 94640; 95816; 99291; C9113; J0282; J0692; J1650; J1815; J1953; J2370; J2920; J3010; J3370; J3480; J3490; J7040; J7050; J7060; J7608; Q9967